=== PATIENT | female | born 1995 | race Caucasian/White ===

== ENCOUNTER 2018-12-17 21:05 | Emergency (ER) | payer OTHER, BC ==
[~2018-12-17] VITALS: Ht 165.1 cm; Wt 66.0 kg
[2018-12-17 21:07] VITALS: BP 104/102
[2018-12-17] MEDS ORDERED: DIPHENHYDRAMINE 25 MG CAPSULE PO ONE (21:30)
[2018-12-17] MEDS ORDERED: FAMOTIDINE 20 MG TABLET PO ONE (21:30)
[2018-12-17] MEDS ORDERED: FAMOTIDINE 20 MG TABLET ONE (21:38)
[2018-12-17] MEDS ORDERED: DIPHENHYDRAMINE 25 MG CAPSULE ONE (21:38)
== END 2018-12-17 22:20 | disposition home or self-care (01) ==
LOC: ED 22:14
DX: T78.1XXA Other adverse food reactions, not elsewhere classified, initial encounter (principal); X58.XXXA Exposure to other specified factors, initial encounter
CPT/HCPCS: 99284; J7512; Q0163